=== PATIENT | female | born 1960 | race Caucasian/White ===

== ENCOUNTER 2017-07-02 14:45 | Observation (INO) | payer BC ==
[2017-07-02] MEDS ORDERED: SYNTHROID75 MCG PO (15:15)
[2017-07-02] MEDS ORDERED: CELEXA20 MG PO (15:16)
[2017-07-02] MEDS ORDERED: OMEPRAZOLE40 MG PO (15:16)
--- NOTE | 2017-07-02 15:20 | NUR ---
PATIENT TO ROOM, ALERT AND ORIENTED AT THIS TIME. PATIENT MOTHER AT BEDSIDE. PATIENT DENIES ANY PAIN AT THIS TIME, STATES SHE IS HERE BECAUSE SHE GOT SHORT OF BREATH AT OFFICE AND WAS WHEEZING AND SHAKIN, PATIENT LUNG SOUNDS ARE CLEAR AT THIS TIME, O2 SAT 96% ON ROOM AIR. WILL CONT TO MONITOR PATIENT. BED LOW AND LOCKED. CPOC
--- NOTE | 2017-07-02 15:30 | NUR ---
22 G IV STARTED TO R HAND. 1 ATTEMPT. CPOC
[2017-07-02 16:11] VITALS: BP 105/70
[2017-07-02 16:56] VITALS: BP 105/70; BMI 32.5
--- NOTE | 2017-07-02 17:00 | NUR ---
DR LAWRENCE ORDERED TO DECREASE NS TO KVO. IV INFUSING AT 10ML/HR. CPOC
--- NOTE | 2017-07-02 17:46 | NUR ---
PATIENT SITTING UP IN BED EATING DINNER. DENIES ANY NEEDS. CPOC
--- NOTE | 2017-07-02 18:40 | NUR ---
PATIENT SITTING UP IN BED, DENIES ANY NEEDS AT THIS TIME. CPOC
--- NOTE | 2017-07-02 19:53 | NUR ---
PT IN BED RESTING QUEITLY. DENIES ANY PAIN OR NEEDS AT THIS TIME. BED IN LOW POSITION, CALL LIGHT WITHIN REACH.
[2017-07-02 20:00] VITALS: BP 142/62
--- NOTE | 2017-07-02 21:19 | NUR ---
WENT TO GIVE PT HER BEDTIME MEDS. SHE STATED THAT SHE WAS NOT SUPPOSED TO TAKE THE SINGULAIR AT NIGHTTIME, ONLY IN THE MORNING. DC'D ORDER FOR TONIGHT AND PUT IN NEW ORDER FOR SINGULAIR DAILY AT 0900 AM. PT DENIES ANY OTHER NEEDS AT THIS TIME. BED IN LOW POSITION, CALL LIGHT WITHIN REACH.
[2017-07-03] VITALS: BP 114/58
--- NOTE | 2017-07-03 00:28 | NUR ---
PT STATED THAT SHE WAS HAVING A HEADACHE AND THAT SHE WANTED SOMETHING FOR PAIN. PT DID NOT HAVE ANYTHING ORDERED. PAGED DR. LOUIS'S OFFICE AND LEFT A MESSAGE TO BE CALLED BACK BY THE DREDGE PUMPER PHYSICIAN.
--- NOTE | 2017-07-03 00:38 | NUR ---
RCVD CALL BACK FROM DR. NARVAEZ, THE CHEMICAL BLENDER PHYSICIAN FOR DR. LOUIS. HE ORDERED 2 325 MG TABLETS OF TYLENOL Q6HRS FOR THE PT. GIVEN TO PT. WILL CTM. DENIES ANY OTHER NEEDS AT THIS TIME. BED IN LOW POSITION, CALL LIGHT WITHIN REACH.
--- NOTE | 2017-07-03 02:40 | NUR ---
PT IN BED RESTING QUIETLY WITH EYES CLOSED. BREATHING EVEN AND UNLABORED. BED IN LOW POSITION, CALL LIGHT WITHIN REACH.
[2017-07-03 04:00] VITALS: BP 114/44
[2017-07-03 05:39] LABS: BASOPHILS 0 % (0-2); EOSINOPHILS 0 % (0-7); HEMATOCRIT 37.2 % (36.0-48.0); HEMOGLOBIN 12.3 g/dL (12-16); IMMATURE GRANULOCYTES 0.5 % (0-5); LYMPHOCYTES 15.4 % (15-50); MCH 31.1 pg (26.0-34.0); MCHC 33.1 g/dL (31.0-37.0); MCV 94.2 fL (80.0-100.0); MEAN PLATELET VOLUME 10.2 fL (7.4-10.4); MONOCYTES 0.6 % (2-11); NEUTROPHILS 83.5 % (40-80); PLATELET COUNT 195 10x3/uL (130-400); RBC 3.95 10x6/uL (4.00-5.40); RDW 13.3 % (11.5-14.5); WBC 6.3 10x3/uL (4.8-10.8)
[2017-07-03 05:49] LABS: ALBUMIN 3.2 g/dL (3.4-5.0); ANION GAP 14.8 mmol/L (8-16); BILIRUBIN - TOTAL 0.2 mg/dL (0.2-1.3); CARBON DIOXIDE 23.4 mmol/L (21.0-32.0); CREATININE - SERUM 0.9 mg/dL (0.6-1.3); POTASSIUM - SERUM 4.2 mmol/L (3.5-5.1)
--- NOTE | 2017-07-03 07:28 | NUR ---
RECIEVED REPORT PATIENT HAS A R HAND IV THAT IS INFUSING WITH NS AT KVO. PATIENT IS R ON MONITOR WITH A RATE OF 100. PATIENT DENIES ANY NEEDS OR COMPLAINTS AT THIS TIME. BED LOW AND LOCKED. CPOC
[2017-07-03] MEDS ORDERED: BROVANA15 MCG/2 M INH (07:38)
[2017-07-03] MEDS ORDERED: VIBRAMYCIN 100100 MG PO (07:38)
[2017-07-03] MEDS ORDERED: IPRAT-ALBUT 0.5-3 ML UPD (07:38)
[2017-07-03 08:03] VITALS: BP 125/53
--- NOTE | 2017-07-03 09:00 | NUR ---
MORNING MEDICATION GIVEN WITH NO ISSUES. PATIENT DENIES ANY NEEDS. BED LOW AND LOCKED. CPOC
--- NOTE | 2017-07-03 11:22 | NUR ---
PATIENT SITTING UP IN BED, DENIES ANY NEEDS AT THIS TIME. CPOC
[2017-07-03 13:58] VITALS: BP 91/40
--- NOTE | 2017-07-03 14:30 | NUR ---
PATIENT WALKING AROUND HALLWAY, DENIES ANY NEEDS AT THIS TIME. CPOC
[2017-07-03] MEDS ORDERED: SINGULAIR10 MG PO (15:42)
[2017-07-03] MEDS ORDERED: MEDROL DOSE PACK4 MG PO (15:42)
[2017-07-03] MEDS ORDERED: ADVAIR 250/501 DISK INH (15:42)
--- NOTE | 2017-07-03 16:27 | NUR ---
NEW PRESCRIPTIONS BY DR. LAWRENCE CALLED IN TO [facility] IN [place]. SPOKE WITH MONICA. PT REFUSES FLU VACCINE.
--- NOTE | 2017-07-03 17:34 | NUR ---
faxed nebulizer order to [facility] spoke with oneida. patient signed paperwork. dc instructions given. denies any questions. patient ready for dc.
--- NOTE | 2017-07-17 10:35 | CN ---
PATIENT NAME:CATHY ANDERSON MEDICAL RECORD: [id number] : 60 LOCATION:D. D.2113 ADMIT DATE: 07/02/17 ACCOUNT: [id number] CONSULTING PHYSICIAN: SANDRA LAWRENCE MD REFERRING PHYSICIAN: JUAN LOUIS DO DATE OF CONSULTATION: 07/02/2017 CONSULT REQUESTING PHYSICIAN: Juan Louis DO REASON FOR CONSULTATION: Acute asthma exacerbation. HISTORY OF PRESENT ILLNESS: Ms. Anderson is a 57-year-old female who is sick for the last 1 week. She has sinus congestion. She was coughing. She was given a steroid injection as well as given some Levaquin, but the patient was not getting any better. She was seen in Dr. Louis's office today. She was still a bit shortness of breath, but the patient states she was lot better. She was running fever last week, but now there is no fever and chills, no night sweats. The cough is productive with white color sputum production. The patient was admitted to the hospital for asthma exacerbation. REVIEW OF SYSTEMS: Mainly in the history of present illness. PAST MEDICAL HISTORY: 1. Asthma. 2. Gastroesophageal reflux disease. 3. Hypothyroidism. 4. Anxiety, depression. PAST SURGICAL HISTORY: 1. She has right shoulder rotator surgery. 2. Breast biopsy. 3. Plantar fasciitis surgery. ALLERGIES: SHE IS ALLERGIC TO SULFA AND CEPHALEXIN. HOME MEDICATIONS: She is on Advair. Her other medication was reviewed. PERSONAL AND SOCIAL HISTORY: The patient is a nonsmoker, nondrinker. FAMILY HISTORY: Noncontributory. PHYSICAL EXAMINATION: GENERAL: Now, the patient is lying comfortably. She is not in acute distress. VITAL SIGNS: The blood pressure 105/70, pulse is 69, respirations 17, temperature 97.9, SpO2 96% on room air. HEENT: Conjunctivae pink, sclerae nonicteric. NECK: Supple, no JVD. CHEST: The chest excursion is minimal on both sides. There is no wheeze, no rales. HEART: Rhythm regular, normal sound, no murmur. ABDOMEN: Soft, bowel sounds present. No hepatosplenomegaly. RECTAL: Deferred. EXTREMITIES: No cyanosis, no clubbing, no pedal edema. SKIN: Warm, normal turgor. CENTRAL NERVOUS SYSTEM: The patient is awake and alert. There is no obvious CONSULT REPORT [id number] CATHY ANDERSON cranial nerve abnormality. The gait was not tested. CHEST RADIOGRAPH: There is no acute infiltrate. There is no cardiomegaly. IMPRESSION: 1. Acute asthma exacerbation. 2. Acute sinusitis. 3. Acute tracheobronchitis. 4. Gastroesophageal reflux disease. 5. Hypothyroidism. RECOMMENDATIONS: 1. We will start her on doxycycline p.o. 100 mg ____ b.i.d. 2. Methylprednisolone IV, albuterol/ipratropium nebulizer, Brovana and budesonide nebulizer. 3. Mucinex DM. 4. Singulair 10 mg a day. 5. KVO the IV fluid, follow up labs in the morning. Dr. Louis, thank you for involving me in the care of Ms. Anderson. TRANSINT:[id number] Voice Confirmation ID: [id number] DOCUMENT ID: [id number] SANDRA LAWRENCE MD at 1035 CC: JUAN LOUIS DO [id number] DICTATION DATE: 07/02/17 1620 CABLE SPLICER: 07/02/17 2214 DIS IN 07/03/17 [facility] [address] [place] [address]
== END 2017-07-03 17:36 | disposition home or self-care (01) ==
LOC: D.M2 14:45 → OBSVTIME 14:47 → D.M2 07-03 17:36
PROVIDERS: ADMIT Family Medicine
DX: J45.901 Unspecified asthma with (acute) exacerbation (principal); K21.9 Gastro-esophageal reflux disease without esophagitis; E03.9 Hypothyroidism, unspecified; F41.9 Anxiety disorder, unspecified; F32.9 Major depressive disorder, single episode, unspecified; J01.90 Acute sinusitis, unspecified; J20.9 Acute bronchitis, unspecified

== ENCOUNTER → 2017-07-24 14:37 | Outpatient (CLI) | payer BC ==
[2017-07-02 16:56] VITALS: BMI 32.5
[~2017-07-24 14:37] MED LIST: ADVAIR 250/501 DISK INH; BROVANA15 MCG/2 M INH; CELEXA20 MG PO; IPRAT-ALBUT 0.5-3 ML UPD; MEDROL DOSE PACK4 MG PO; OMEPRAZOLE40 MG PO; SINGULAIR10 MG PO; SYNTHROID75 MCG PO; VIBRAMYCIN 100100 MG PO
== END | disposition home or self-care (01) ==
LOC: D.US 14:37
DX: R60.0 Localized edema (principal)

== ENCOUNTER → 2017-08-24 12:07 | Outpatient (CLI) | payer BC | END | disposition home or self-care (01) | LOC: D.US 12:07 | DX: Z12.31 Encounter for screening mammogram for malignant neoplasm of breast (principal) ==

== ENCOUNTER → 2017-10-15 17:32 | Outpatient (CLI) | payer BC | END | disposition home or self-care (01) | LOC: D.MAMMO 09-09 15:30 | DX: Z12.31 Encounter for screening mammogram for malignant neoplasm of breast (principal) ==

== ENCOUNTER → 2017-11-09 10:45 | Outpatient (CLI) | payer BC | END | disposition home or self-care (01) | LOC: D.RT 10:45 | DX: J45.909 Unspecified asthma, uncomplicated (principal) ==

== ENCOUNTER → 2019-04-22 17:20 | Outpatient (CLI) | payer BC | END | disposition home or self-care (01) | LOC: D.MAMMO 15:30 | PROVIDERS: ATTEND Family Medicine | DX: Z12.31 Encounter for screening mammogram for malignant neoplasm of breast (principal) ==